=== PATIENT | male | born 1965 | race Caucasian/White ===

== ENCOUNTER → 2017-09-27 | Outpatient (CLI) | payer BC ==
--- NOTE | 2017-09-27 18:32 | CT ---
EXAMINATION TYPE: CT abdomen pelvis wo con DATE OF EXAM: 09/27/2017 COMPARISON: 08/10/2015 HISTORY: renal stones, hematuria CT DLP: 1129 mGycm Automated exposure control for dose reduction was used. TECHNIQUE: Helical acquisition of images was performed from the lung bases through the pelvis. FINDINGS: Lung bases are clear of consolidation. There is no pleural effusion. There is no pericardial effusion . Liver spleen pancreas appear normal. There are clips from cholecystectomy. Bile ducts are not dilated . There is no adrenal mass. There are 1 cm calculi in the lower pole left kidney. There is no hydroneph rosis. There are numerous phleboliths in the pelvis. Ureters are not dilated. Appendix appears normal . There is no retroperitoneal adenopathy. There is no ascites. I see no intestinal wall thickening. There are a few sigmoid diverticula. There is no sign of diverti culitis. Bladder distends smoothly. There is prostatic calcification. There is a small left-sided diego dder diverticulum. IMPRESSION: LEFT RENAL CALCULI. MILD SIGMOID DIVERTICULOSIS. THERE IS CLEARING OF THE LEFT SIDE OBSTRUCTION ERIK RED TO OLD EXAM. SMALL LEFT-SIDED BLADDER DIVERTICULUM. THERE IS MULTILEVEL SPONDYLOSIS IN THE LUMBAR SPINE WITH ALSO MULTILEVEL LUMBAR BONY SPINAL STENOSIS. THIS APPEARS UNCHANGED.
== END ==
LOC: RADCTMAIN 17:36
PROVIDERS: ATTEND Physician Assistant Medical
DX: N20.0 Calculus of kidney (principal); K57.30 Diverticulosis of large intestine without perforation or abscess without bleeding; N32.3 Diverticulum of bladder
CPT/HCPCS: 74176

== ENCOUNTER → 2017-12-31 | Outpatient (CLI) | payer BC ==
--- NOTE | 2017-12-31 10:50 | XR ---
Abdomen HISTORY: Renal calculus Frontal view of the abdomen on 2 images There are calculi superimposed over the lower pole left kidney measuring approximately 9 to 10 mm. Mu ltiple calcifications in the pelvis felt likely to represent phleboliths or vas deferens calcificatio ns. Surgical clip present in the right hemipelvis. Clips present in the right upper quadrant. There i s a spinal curvature. Lung bases are clear. No bowel obstruction or pneumoperitoneum. IMPRESSION: Left nephrolithiasis.
== END | disposition home or self-care (01) ==
LOC: RADXRMAIN 08:03
PROVIDERS: ATTEND Urology
DX: N20.0 Calculus of kidney (principal)
CPT/HCPCS: 74018

== ENCOUNTER → 2018-02-12 | Outpatient (CLI) | payer BC ==
[2018-02-12 16:45] LABS: Appearance,Urine Clear (Clear); Bilirubin,Urine Negative (Negative); Blood,Urine Negative (Negative); Color,Urine Yellow; Glucose,Urine (UA) Negative (Negative); Ketones,Urine Negative (Negative); Leukocyte Esterase,Urine Negative (Negative); Nitrite,Urine Negative (Negative); PH, Urine 5.5 (5.0-8.0); Protein,Urine Trace (Negative); Specific Gravity,Urine 1.024 (1.001-1.035); Urobilinogen,Urine <2.0 mg/dL (<2.0)
[2018-02-12 16:53] LABS: Basophils % (A) 0 %; Eosinophils # (A) 0.1 k/uL (0-0.7); Eosinophils % (A) 1 %; HCT 51.4 % (39.0-53.0); HGB 17.4 gm/dL (13.0-17.5); Lymphocytes # (A) 0.7 k/uL (1.0-4.8); Lymphocytes % (A) 9 %; MCH 29.4 pg (25.0-35.0); MCHC 33.9 g/dL (31.0-37.0); MCV 86.7 fL (80.0-100.0); Mean Platelet Volume 6.8; Monocytes # (A) 0.5 k/uL (0-1.0); Monocytes % (A) 7 %; Neutrophils # (A) 6.5 k/uL (1.3-7.7); Neutrophils % (A) 81 %; Platelet Count 233 k/uL (150-450); RBC 5.93 m/uL (4.30-5.90); RDW 13.5 % (11.5-15.5)
[2018-02-12 16:55] LABS: ALT 43 U/L (21-72); AST 26 U/L (17-59); Albumin 4.2 g/dL (3.5-5.0); Alkaline Phosphatase 60 U/L (38-126); Anion Gap 16 mmol/L; Blood Urea Nitrogen 22 mg/dL (9-20); Calcium 8.9 mg/dL (8.4-10.2); Carbon Dioxide 23 mmol/L (22-30); Chloride 107 mmol/L (98-107); Glucose 126 mg/dL (74-99); Potassium 3.8 mmol/L (3.5-5.1); Sodium 146 mmol/L (137-145); Total Bilirubin 1.6 mg/dL (0.2-1.3); Total Protein 7.1 g/dL (6.3-8.2)
== END | disposition home or self-care (01) ==
LOC: LABPAT 16:19
PROVIDERS: ATTEND Urology
DX: Z01.812 Encounter for preprocedural laboratory examination (principal); N20.0 Calculus of kidney; N13.30 Unspecified hydronephrosis; Z79.899 Other long term (current) drug therapy; R31.29 Other microscopic hematuria
CPT/HCPCS: 80053; 81003; 85025; 87086

== ENCOUNTER 2018-02-19 06:13 | Observation (INO) | payer BC ==
[2018-02-12 11:44] VITALS: BMI 29.9
[~2018-02-19 06:13] MED LIST: HYDROmorphone 0.5 MG/0.5 ML SYRINGE IVP PRN; ONDANSETRON 4 MG/2 ML VIAL IVP PRN; ceFAZolin 1,000 MG in DEXTROSE/WATER 1 50ML.BAG IVPB ONE
[2018-02-19] MEDS ORDERED: DEXAMETHASONE SOD PHOSPHATE 10 MG/ML 1 ML VIAL IV ONE (07:00)
[2018-02-19] MEDS: LACTATED RINGERS 1,000 ML IV SCH (07:00)
[2018-02-19] MEDS ORDERED: LIDOCAINE 1% 20 ML VIAL (10MG/ML) FOR IV START INTRADERMA ONE (07:00)
[2018-02-19] MEDS ORDERED: ceFAZolin 1,000 MG/50 ML BAG (PMX) IVPB ONE (07:20)
[2018-02-19] MEDS ORDERED: fentaNYL (PF) 50 MCG/ML 2 ML AMP ONE (07:27)
[2018-02-19] MEDS ORDERED: ePHEDrine SULFATE/0.9% NACL/PF 50 MG/5 ML SYRINGE IV ONE (07:27)
[2018-02-19] MEDS ORDERED: PROPOFOL 10 MG/ML 20 ML VIAL IV ONE (07:27)
[2018-02-19] MEDS ORDERED: GLYCOPYRROLATE 0.2 MG/ML 2 ML VIAL ONE (07:27)
[2018-02-19] MEDS ORDERED: ROCURONIUM BROMIDE 10 MG/ML 10 ML VIAL IV ONE (07:27)
[2018-02-19] MEDS ORDERED: KETOROLAC 30 MG/ML 1 ML VIAL ONE (07:27)
[2018-02-19] MEDS ORDERED: SUCCINYLCHOLINE CHLORIDE 100 MG/5 ML SYR IV ONE (07:27)
[2018-02-19] MEDS ORDERED: MIDAZOLAM 2 MG/2 ML VIAL ONE (07:27)
[2018-02-19] MEDS ORDERED: NEOSTIGMINE 1 MG/ML 10 ML VIAL ONE (07:27)
[2018-02-19] MEDS ORDERED: LIDOCAINE 1% INJ 10MG/ML (20 ML MDV) ONE (07:27)
--- NOTE | 2018-02-19 07:33 | XR ---
EXAMINATION TYPE: XR KUB DATE OF EXAM: 02/19/2018 COMPARISON: 08/10/2015 INDICATION: Presurgery left renal stone TECHNIQUE: Single view abdomen supine view FINDINGS: There is a normal bowel gas pattern. Psoas margins are normal. No organomegaly is present. There is a 1.0 cm calcification overlying the inferior pole left kidney. This may be due to overlying renal stone calcifications. No additional suspicious calcifications are evident. Multiple phlebolith s within the pelvis. IMPRESSION: 1. Left renal stones.
[2018-02-19] MEDS ORDERED: IOHEXOL 350 MG/ML (PER ML) 100ML BTL INJ ONE (08:07)
[2018-02-19] MEDS ORDERED: MAG HYDROX/AL HYDROX/SIMETH 30 ML CUP PO PRN (09:41)
[2018-02-19] MEDS ORDERED: ONDANSETRON 4 MG/2 ML VIAL IVP PRN (09:41)
[2018-02-19] MEDS ORDERED: ACETAMINOPHEN TAB 325 MG TAB PO PRN (09:41)
[2018-02-19] MEDS ORDERED: NALOXONE 0.4 MG/ML 1 ML VIAL IV PRN ×2 (09:49→15:55)
[2018-02-19] MEDS ORDERED: KETOROLAC 30 MG/ML 1 ML VIAL IVP PRN (09:49)
[2018-02-19] MEDS ORDERED: HYDROmorphone PCA 5 MG/25 ML SYRINGE IV PRN (09:49)
--- NOTE | 2018-02-19 09:59 | P.OP ---
Date of Procedure: 02/19/18 Preoperative Diagnosis: Left renal stones large Postoperative Diagnosis: Same Procedure(s) Performed: Cystoscopy, placement of occluding balloon catheter left, percutaneous nephrostomy (Dr. Layne, percutaneous nephrostolithotomy with laser, large Anesthesia: BIBIANA Surgeon: Ashutosh Carlson Estimated Blood Loss (ml): 50 Pathology: other (Stone) Condition: stable Disposition: PACU Indications for Procedure: The patient is a 52-year-old gentleman with over 2 cm the stones in the left lower pole calyx he comes for percutaneous nephrostolithotomy Description of Procedure: The patient is brought to the operating suite. He is given a general endotracheal anesthesia on the transport gurney. He's placed in a frog position. Cystoscopy Foroblique lens and 22-Argentine sheath identifies a normal urethra. The prostate is not obstructing. The bladder is inspected. The right ureteral orifice is normal. On the left side is a hutch diverticula with the orifice in the superior medial aspect of the diverticula. The the ureter was intubated with a 5-Argentine occluding balloon catheter. The cystoscope was removed. A Padgett catheters placed and secured to the ureteral catheter. The patient's placed in a prone position with care to airways and extremities. A sterile prep and drape was administered. Dr. Layne of radiology performed percutaneous access to the upper pole calyx very medially. We then dilate the tract to 30-Argentine. Introduced the working sheath. Remove clot through the working sheath. Due to a very complex delicate collecting system I passed the flexible nephroscope into the lower pole calyces were the stones reside. Using laser and the 365 probe the stones are broken into tinier pieces. There are then basketed with a 1.9-Argentine stone basket. Then of the procedure I looked throughout the collecting system as well as do her ostomy and there are no remaining fragments. A 10-Argentine J nephrostomy tubes placed. The patient's awake and returned recovery in good condition. Tell her procedure well. Blood loss is approximately 50 ml. He'll be placed in the hospital postoperatively.
[2018-02-19] MEDS: fentaNYL (PF) 50 MCG/ML 2 ML AMP IVP ONE ×2 (10:06→10:19)
[2018-02-19] MEDS: MORPHINE SULFATE 4 MG/ML SYRINGE IV PRN ×3 (10:37→11:01)
[2018-02-19] MEDS: MEPERIDINE 50 MG/ML SYRINGE IVP ONE ×4 (11:10→14:10)
[2018-02-19] MEDS ORDERED: SODIUM CHLORIDE 0.9% 1,000 ML IV ONE ×2 (12:27)
--- NOTE | 2018-02-19 12:34 | FL ---
EXAMINATION TYPE: FL Perc Nephrostomy New Access DATE OF EXAM: 02/19/2018 COMPARISON: CT 09/27/2017 HISTORY: Left renal calculi. PROCEDURE: Maximal barrier technique was utilized. The skin overlying the left kidney was localized using fluor oscopy and the overlying skin prepped and draped. Lidocaine used for local anesthesia. Skin valorie wa s made with a scalpel. Access was gained under fluoroscopy, following placement of a ureteral occlus ion balloon by the referring clinician and instillation of air in the renal collecting system with a 21-gauge needle to the kidney. A suitable posterior calyx was chosen. A 0.018 inch wire was advanc ed. The access site was dilated and subsequently a sheath was advanced into the renal pelvis followi ng dilation with balloon along the tract. Urine returned in the hub of the catheter. The patient unde rwent nephrolithotomy by the referring clinician. The patient remained in stable condition without complication. The patient was discharged to observation. IMPRESSION: STATUS POST NEPHROSTOMY PLACEMENT FOR NEPHROLITHOTOMY WITH FLUOROSCOPIC GUIDANCE. THIS PROCEDURE PER FORMED BY THE UNDERSIGNED.
[2018-02-19] MEDS: DEXTROSE 5%-0.45% NACL 1,000 ML IV SCH ×2 (15:45→20:31)
[2018-02-19] MEDS ORDERED: MORPHINE PCA 30 MG/30 ML SYRINGE IV PRN (15:55)
[2018-02-19] MEDS: HYDROcodone/APAP 7.5-325MG 1 EACH TAB PO SCH ×2 (17:27→23:30)
[2018-02-19] MEDS ORDERED: LOSARTAN 50 MG TAB PO SCH (21:00)
[2018-02-19] MEDS ORDERED: TAMSULOSIN 0.4 MG CAP.ER.24H PO SCH (21:00)
[2018-02-19] MEDS ORDERED: ATORVASTATIN 20 MG TAB PO SCH (21:00)
[2018-02-20] MEDS: LACTATED RINGERS 1,000 ML IV SCH (01:53)
[2018-02-20] MEDS: DEXTROSE 5%-0.45% NACL 1,000 ML IV SCH (05:51)
--- NOTE | 2018-02-20 06:45 | P.DS ---
Providers Date of admission: 02/19/18 21:39 Attending physician: Ashutosh Carlson Primary care physician: [facility] Course: The patient was admited 02/19/2018 for a percutaneous nephrostolithotomy on the left he tolerated this. His pain was controlled narcotics postoperatively. This morning the urine is clearing and the side. He is voiding. His pain is under control. He'll be discharged home in care of his family. He is been given a prescription of [place] for postoperative pain. He'll follow-up in the office on Saturday for nephrostomy tube removal. Postoperative instructions have been given. His condition is good. Patient Condition at Discharge: Good Plan - Discharge Summary Discharge Rx Participant: No New Discharge Prescriptions: No Action Tamsulosin HCl [Flomax] 0.4 mg PO HS HYDROcodone/APAP 7.5-325MG [Madison 7.5-325] 1 tab PO TID Methylphenidate HCl [Concerta] 36 mg PO DAILY Losartan Potassium [Cozaar] 100 mg PO HS Atorvastatin [Lipitor] 20 mg PO HS Ibuprofen 200 - 400 mg PO DIRECTED PRN PRN Reason: Pain Discharge Medication List Tamsulosin HCl [Flomax] 0.4 mg PO HS 08/10/15 [History] Atorvastatin [Lipitor] 20 mg PO HS 02/12/18 [History] HYDROcodone/APAP 7.5-325MG [Madison 7.5-325] 1 tab PO TID 02/12/18 [History] Ibuprofen 200 - 400 mg PO DIRECTED PRN 02/12/18 [History] Losartan Potassium [Cozaar] 100 mg PO HS 02/12/18 [History] Methylphenidate HCl [Concerta] 36 mg PO DAILY 02/12/18 [History] Follow up Appointment(s)/Referral(s): Ashutosh Carlson MD [STAFF PHYSICIAN] - 02/24/18 Activity/Diet/Wound Care/Special Instructions: Home with nephrostomy tube
[2018-02-20 07:57] VITALS: BP 130/66; PULSE 75; RESP 20; TEMP 98.5
[2018-02-20] MEDS ORDERED: METHYLPHENIDATE HCL 10 MG TAB PO SCH (08:00)
[2018-02-20] MEDS: HYDROcodone/APAP 7.5-325MG 1 EACH TAB PO SCH (08:08)
== END 2018-02-20 13:15 | disposition home or self-care (01) ==
LOC: OR 06:13 → 3SUR 09:37 → OR 21:38 → 3SUR 21:39
PROVIDERS: ADMIT Urology; ATTEND Urology
DX: N20.0 Calculus of kidney (principal); I10 Essential (primary) hypertension; N40.0 Benign prostatic hyperplasia without lower urinary tract symptoms; Z79.899 Other long term (current) drug therapy; Z87.442 Personal history of urinary calculi; Z84.1 Family history of disorders of kidney and ureter
CPT/HCPCS: 50080; 93005; 86900; 86901; 86850; 82365; 50432; 74018; G0378 ×2; C1769 ×4; C2628; C1729 ×2; C1894; J2250; J2270 ×2; J1100; J2710; Q9967; J2175; J2405; J2001; J3010; J1885; J0690; J0330; J2704

== ENCOUNTER → 2019-08-27 | Outpatient (CLI) | payer BC ==
--- NOTE | 2019-08-27 16:12 | CT ---
EXAMINATION TYPE: CT brain wo con DATE OF EXAM: 08/27/2019 COMPARISON: None INDICATION: Dizziness and unsteady gait. DLP: 1165 mGycm, Automated exposure control for dose reduction was used. CONTRAST: None CT of the brain is performed utilizing 3 mm thick sections through the posterior fossa and 3 mm thick sections through the remaining calvarium. Study is performed within 24 hours of arrival to the hosp [facility]. No abnormal hyperdensity is present to suggest an acute intracranial hemorrhage. No mass lesion is evident. No acute infarcts are evident. Ventricles and sulci are appropriate for the patient age. Paranasal sinuses and mastoid air cells within the [id number] are clear. IMPRESSIONS: 1. Normal CT Brain
== END ==
LOC: RADCTMAIN 15:35
PROVIDERS: ATTEND Family Medicine
DX: R42 Dizziness and giddiness (principal); I10 Essential (primary) hypertension; R26.89 Other abnormalities of gait and mobility
CPT/HCPCS: 70450

== ENCOUNTER → 2019-09-14 | Outpatient (CLI) | payer BC ==
--- NOTE | 2019-09-14 10:11 | XR ---
EXAMINATION TYPE: XR shoulder complete RT DATE OF EXAM: 09/14/2019 COMPARISON: NONE HISTORY: Pain TECHNIQUE: Three views are submitted. FINDINGS: The osseous structures are intact. There is no acute fracture or dislocation. Arthropathy of the AC joint. IMPRESSION: 1. AC joint arthropathy.
== END | disposition home or self-care (01) ==
LOC: RADXRYALE 09:25
PROVIDERS: ATTEND Family Medicine
DX: M19.011 Primary osteoarthritis, right shoulder (principal)

== ENCOUNTER → 2019-11-09 | Outpatient (CLI) | payer BC ==
--- NOTE | 2019-11-10 08:43 | XR ---
EXAM TYPE: LUMBAR SPINE X RAY SERIES COMPARISON: NONE HISTORY: Pain TECHNIQUE: 4 views are submitted. FINDINGS: Alignment is anatomic. The pedicles are intact. The transverse processes are intact. There is no s pondylolysis or spondylolisthesis. There is a scoliotic curvature the spine with multilevel degenera tive disc disease and facet arthropathy. Moderate severe changes are seen. Surgical clips in the gall bladder fossa are noted. There is a lower pole 7 mm left renal calculus. IMPRESSION: 1. Multilevel moderate to severe degenerative disc disease with scoliosis. 2. Left lower pole 7 mm renal calculus.
== END | disposition home or self-care (01) ==
LOC: RADXRYALE 15:44
PROVIDERS: ATTEND Physician Assistant Medical
DX: M51.37 Other intervertebral disc degeneration, lumbosacral region (principal); M41.87 Other forms of scoliosis, lumbosacral region
CPT/HCPCS: 72110

== ENCOUNTER → 2020-09-08 | Outpatient (CLI) | payer BC ==
--- NOTE | 2020-09-08 11:37 | XR ---
Right knee HISTORY: Pain 3 views of the right knee Suprapatellar increased density consistent with joint effusion is noted. Bone mineralization, joint s paces and alignment are remarkable for medial compartment joint space loss, marginal spurring. No fra cture or dislocation. IMPRESSION: Osteoarthritis. Joint effusion.
== END | disposition home or self-care (01) ==
LOC: RADXRYALE 09:39
PROVIDERS: ATTEND Physician Assistant
DX: M17.11 Unilateral primary osteoarthritis, right knee (principal)

== ENCOUNTER → 2021-02-22 | Outpatient (CLI) | payer BC ==
--- NOTE | 2021-02-22 16:16 | XR ---
EXAMINATION TYPE: XR chest 2V DATE OF EXAM: 02/22/2021 COMPARISON: Chest x-ray dated 08/09/2015 HISTORY: [id number], Covid 19 TECHNIQUE: Frontal and lateral views of the chest are obtained. FINDINGS: Patchy densities present in the bilateral lungs which is developed in the interval. There is prominence of interstitium. No evident pneumothorax or pleural effusion. Cardiac style silhouette is stable. IMPRESSION: Correlate for pneumonia, interstitial lung disease.
== END | disposition home or self-care (01) ==
LOC: RADXRYALE 09:01
PROVIDERS: ATTEND Physician Assistant Medical
DX: U07.1 COVID-19 (principal)
CPT/HCPCS: 71046

== ENCOUNTER → 2021-03-08 | Outpatient (CLI) | payer BC ==
--- NOTE | 2021-03-08 12:26 | XR ---
EXAMINATION TYPE: XR chest 2V DATE OF EXAM: 03/08/2021 COMPARISON: 02/22/2021 TECHNIQUE: PA and lateral views submitted. HISTORY: Shortness of breath FINDINGS: The lungs are clear and there is no pneumothorax, pleural effusion, or focal pneumonia. Linear rodrigez ges involving the left lung could be on the basis area of scar or atelectasis. Hypertrophic and degen erative change of the spine. IMPRESSION: 1. COPD with patchy interstitial changes in the left lower lobe could been the basis of atelectasis a lthough early interstitial pneumonitis not excluded correlate clinically.
== END | disposition home or self-care (01) ==
LOC: RADXRYALE 12:06
PROVIDERS: ATTEND Physician Assistant Medical
DX: U07.1 COVID-19 (principal); J44.9 Chronic obstructive pulmonary disease, unspecified
CPT/HCPCS: 71046

== ENCOUNTER → 2022-09-10 | Outpatient (CLI) | payer BC ==
--- NOTE | 2022-09-10 13:25 | XR ---
EXAMINATION TYPE: XR ankle complete LT DATE OF EXAM: 09/10/2022 COMPARISON: NONE HISTORY: Pain FINDINGS: Three views of the ankle demonstrate the ankle mortise to be intact and symmetric. The joint spaces are preserved. The osseous structures are intact. Moderate size calcaneal spur. The millimeter scle rotic density in the anterior margin of the calcaneus most of bone island. IMPRESSION: 1. Moderate-sized plantar calcaneal spur..
--- NOTE | 2022-09-10 13:27 | XR ---
EXAMINATION TYPE: XR foot complete LT DATE OF EXAM: 09/10/2022 COMPARISON: NONE HISTORY: Pain TECHNIQUE: Three views are submitted. FINDINGS: The osseous structures are intact. There is no acute fracture or dislocation. There is complete lo ss of joint space compatible severe arthropathy of the first MTP. Small spur extending off the base o f fifth metatarsal. There is a moderate-sized plantar calcaneal spur. Sclerotic density anterior calc aneus compatible with bone island. IMPRESSION: 1. Severe first MTP joint arthropathy with complete loss of joint space. 2. Moderate-sized plantar calcaneal spur.
== END | disposition home or self-care (01) ==
LOC: RADXRYALE 13:02
PROVIDERS: ATTEND Physician Assistant
DX: M19.072 Primary osteoarthritis, left ankle and foot (principal); M77.32 Calcaneal spur, left foot